=== PATIENT | female | born 1965 | race Caucasian/White ===

== ENCOUNTER → 2019-08-15 | Outpatient (CLI) | payer OTHER ==
[~2019-08-15] MED LIST: FENOFIBRATE150 MG PO; HYDROCH; LEVO-T75 MCG PO; MAGNESIUM400 M1 PO; MELOXICAM15 MG PO; METAXALONE800 MG PO; NEURONTIN300 MG PO; PROTONIX40 M4 PO; ROSUVASTATIN CA20 MG PO; TRAMADOL 50 MG50 MG PO; VENLAFAXINE HC150 M1 PO; VITAMIN D PO
--- NOTE | 2019-08-29 15:59 | PAINCON ---
[address] [address] PAIN MANAGEMENT CONSULTATION Name: ALYSE MILLER Room: [facility].#: [id number] Admission: 08/15/19 Attend Phys: Anselmo Keene MD Discharge: Date of : 61 Report #: [id number] THIS REPORT FOR: //name// cc: Mallika Guadarrama Stephanie RNP ~ THIS REPORT FOR: //name// CC: Anselmo Guadarrama DATE OF SERVICE: 08/15/2019 CHIEF COMPLAINT: Low back pain. HISTORY: The patient is a 53-year-old female who has been referred to the pain clinic for evaluation of back pain. The patient noted worsening of her pain about 15 weeks ago. She describes it as sharp, throbbing pain in the lumbar area and radiating down into both legs. She is not sure that anything makes it worse. She notes that the pain is somewhat better if she is lying flat in bed without moving. It radiates down into her legs and into her back while pulling a mower rope. She felt the sharp pain in her low back area. The pain has continued to radiate down into both legs. She describes some numbness in the right leg. She also perceives some weakness in both legs, which have frequently caused her to fall. She has been using muscle relaxants. They were not very effective. She had an x-ray of her back in June, which showed mild degenerative arthritis in the lumbar spine. Worst area and most effective was at L4-L5. She also has some facet arthritis/changes. She has been ambulating using crutches because of weakness in her legs. She has been undergoing physical therapy. She has considered chiropractic treatment. She has been using tramadol, gabapentin, and Flexeril. MEDICATIONS: Albuterol 2.5 nebulizing solution, Crestor 20 mg, fenofibrate 145 mg, fish oil 1000 mg, hydrochlorothiazide 12.5, hydrocodone 5/325 one p.o. q. 6 hours p.r.n., lorazepam 0.5 mg b.i.d., melatonin 3 mg, Mobic 15 mg, Prempro 0.3-1.5 daily, Protonix 40 mg, Skelaxin 800 mg t.i.d. PAST MEDICAL HISTORY: Thyroid disease, colon problems, tumor removed, joint disease, bilateral knee pain, hypertension. PAST SURGICAL HISTORY: Gastric bypass, cholecystectomy 20 years ago, in 2008, tonsils in 1969, tumor removed from the colon in 2009, gastric bypass in 2017, LASIK surgery in 2014. SOCIAL HISTORY: She is retired. Denies use of tobacco. Drinks about 3 alcoholic [place] [address] PAIN MANAGEMENT CONSULTATION Name: ALYSE MILLER Room: [facility]#: [id number] Admission: 08/15/19 Attend Phys: Anselmo Keene MD Discharge: Date of : 61 Report #: [id number] PAIN CLINIC ASSESSMENT AND PQRS: 1. The patient has osteoarthritic changes involving her knees, not being treated for rheumatoid arthritis. 2. Height 5 feet 3 inches, weight 220 pounds. The patient states she is gaining weight back since her gastric bypass. 3. Pain score . 4. Fall history: The patient states that she has fallen and has been using crutches because of weakness in her legs. 5. Hypertension. The patient is being treated for hypertension. 6. Blood thinner. The patient is not on a blood thinning medication. 7. Opioids. The patient receives medications from her primary. 8. Risk assessment tool, low for opioid use. 9. Functional assessment tool reviewed. 10. Recreational drug use. The patient denies. 11. Tobacco: The patient denies use of tobacco. 12. Alcohol: The patient drinks about 3 alcoholic beverages per week. PHYSICAL EXAMINATION: GENERAL: The patient is a well-developed, well-nourished white female. Appears her stated age. She is alert and oriented x 3. Her affect is appropriate. Speech is fluent. HEENT: Normocephalic, atraumatic. Extraocular eye muscles intact. Sclerae nonicteric. Mucous membranes are moist. The patient is wearing a mask. NECK: Without adenopathy or JVD. The patient does complain of some neck pain with a burning discomfort in the left trapezius area. EXTREMITIES: Upper extremity muscle strength judged to be 5/5 for the major muscle groups in the upper extremity. Deep tendon reflexes are +2 at the biceps bilaterally. The patient without significant scoliosis, kyphosis or lordosis. The patient complains of pain and discomfort in lower portion of her back. Deep tendon reflexes are +2 at the knees bilaterally, absent at the ankles. The patient complains of pain in the lower portion of her back, which radiates down in the L5-S1 dermatomal distribution bilaterally. LABORATORY DATA: Lumbar spine, AP lateral and oblique views 06/24/2019. Impression, mild degenerative arthritis changes of the lumbar spine, greatest at the L4-L5 level and in the posterior facets. MRI of the lumbar spine dated 06/28/2019. 1. L4-L5 mild disk space narrowing seen. There is a facet and ligamentum flavum hypertrophy. Diffuse bulging annulus is seen. Thecal sac measures 7 mm AP. No significant foraminal stenosis. 2. L5-S1 facet and ligamentum hypertrophy seen. There is a diffuse bulging annulus. There is a small focal central disk protrusion. This contacts both S1 nerve roots. The thecal sac measures 9-10 mm in AP diameter. Neural foramen are patent. IMPRESSION: [place] [address] PAIN MANAGEMENT CONSULTATION Name: ALYSE MILLER Room: [facility]#: [id number] Admission: 08/15/19 Attend Phys: Anselmo Keene MD Discharge: Date of : 61 Report #: [id number] 1. Lumbar radiculopathy with leg weakness and narrowing at L4-L5. 2. Thyroid disease. 3. Colon problems, tumor removed. 4. Joint disease. 5. Bilateral knee pain. 6. Hypertension. RECOMMENDATIONS: We discussed treatment options with the patient. Risks and benefits of an epidural steroid injection were discussed. At this point, the patient is having pain and discomfort radiating down into her legs. She has a perception of weakness in her lower extremity. She will return to the Pain Clinic, at which time we will consider an epidural steroid injection. We have discussed the risk and benefits of an epidural steroid injection. We reviewed them again prior to the injection. We would like to thank you for letting us participate in her care. We hope she continues to improve. <ELECTRONICALLY SIGNED> By: Anselmo Keene MD 08/29/19 1559 1418 2030N. Marvel Keene MD /[facility]
== END ==
LOC: EDUNIT# 07-01 13:43 → M.PC 10:00
PROVIDERS: ATTEND Anesthesiology Pain Medicine
DX: M54.16 Radiculopathy, lumbar region (principal); M48.061 Spinal stenosis, lumbar region without neurogenic claudication; E04.9 Nontoxic goiter, unspecified; M25.50 Pain in unspecified joint; M25.561 Pain in right knee; M25.562 Pain in left knee; I10 Essential (primary) hypertension; K59.9 Functional intestinal disorder, unspecified; Z79.899 Other long term (current) drug therapy

== ENCOUNTER → 2019-10-15 | Outpatient (CLI) | payer OTHER | LOC: M.RAD 14:30 | PROVIDERS: ATTEND Nurse Practitioner Family | DX: Z12.31 Encounter for screening mammogram for malignant neoplasm of breast (principal) ==

== ENCOUNTER → 2019-10-24 | Outpatient (CLI) | payer OTHER | END | disposition home or self-care (01) | LOC: M.PC 10:40 | PROVIDERS: ATTEND Anesthesiology Pain Medicine | DX: M54.16 Radiculopathy, lumbar region (principal); G89.29 Other chronic pain; I10 Essential (primary) hypertension; M19.90 Unspecified osteoarthritis, unspecified site; E07.9 Disorder of thyroid, unspecified; Z87.19 Personal history of other diseases of the digestive system; Z90.49 Acquired absence of other specified parts of digestive tract; Z98.84 Bariatric surgery status; Z98.890 Other specified postprocedural states; Z79.899 Other long term (current) drug therapy ==

== ENCOUNTER → 2019-12-17 | Outpatient (CLI) | payer OTHER ==
--- NOTE | 2019-12-18 15:45 | PAINCON ---
[address] [address] PAIN MANAGEMENT CONSULTATION Name: ALYSE MILLER Room: [facility]#: [id number] Admission: 12/17/19 Attend Phys: Anselmo Keene MD Discharge: Date of : 61 Report #: [id number] THIS REPORT FOR: //name// cc: Mallika Guadarrama Stephanie RNP ~ CC: Anselmo Guadarrama DATE OF SERVICE: 12/17/2019 CHIEF COMPLAINT: "Pain in the low back has improved, but I am still having some pain in the low back and going down my buttocks." HISTORY: The patient is a 54-year-old female who has been seen in the pain clinic because of lumbar radiculopathy. She underwent an epidural steroid injection because of lumbar radiculopathy. She was experiencing pain that radiated down into her lower extremities. She has noted that the pain has improved. She is having less radicular pain, but still has some back pain and discomfort. She has returned today with the hopes of undergoing an epidural steroid injection to help quell and decrease her pain. She rates her pain as a 6/10. She had no complication from the previous injection. ALLERGIES: No known drug allergies. CURRENT MEDICATIONS: Fenofibrate 150 mg, gabapentin 300 mg, levothyroxine 75 mcg, magnesium 400 mg, meloxicam 15 mg, metaxalone 800 mg, Protonix 40 mg, Rosuvastatin 20 mg, tramadol 50 mg, venlafaxine ER 150 mg, vitamin D. PAIN CLINIC ASSESSMENT AND PQRS: 1. The patient has some arthritic changes in her knees. She is not being treated for rheumatoid arthritis. 2. Height 5 feet 3 inches, weight 232 pounds, BMI is 41. 3. Vital Signs: Blood pressure is 142/102, second second blood pressure 134/91, heart rate 87, respiratory rate 16, room air saturation 96%, temperature 96.5, saturation 96%. 4. Pain intensity, 07/30. 5. Fall history. The patient has not fallen in the last 3 weeks. The patient had been walking with crutches. 6. Hypertension. The patient is being treated for hypertension. 7. Blood thinner. The patient is not on a blood thinning medication. 8. Opioids. The patient received medication from her primary. 9. Risk assessment tool, low for opioid use. 10. Functional assessment tool, reviewed. 11. Recreational drug use. The patient denies. 12. Tobacco. The patient denies. 13. Alcohol. The patient occasionally drinks alcoholic beverages 3 [place] [address] PAIN MANAGEMENT CONSULTATION Name: ALYSE MILLER [id number] Admission: 12/17/19 Attend Phys: Anselmo Keene MD Discharge: Date of : 61 Report #: [id number]. PHYSICAL EXAMINATION: GENERAL: The patient is a well-developed, well-nourished, white female. Appears her stated age. She is alert and oriented x 3. Her affect is appropriate. Speech is fluent. HEENT: Normocephalic, atraumatic. Extraocular eye muscles intact. The patient is wearing a facial covering. NECK: Without adenopathy or JVD. The patient does complain of some pain in the trapezius area of her neck. MUSCULOSKELETAL: Upper extremity muscle strength judged to be 5/5 for the major muscle groups in the upper extremity. The patient also has some discomfort in lower portion of her back. The patient without significant scoliosis, kyphosis or lordosis. The patient's muscle strength in the lower extremities judged to be 5-/5 for the major muscle groups in the lower extremity. The patient had pain in the past that radiated down the L4-L5 dermatomal distribution. IMPRESSION: 1. History of lumbar radicular pain in the L4-L5 dermatomal distribution. 2. Thyroid disease. 3. Colon problems, had tumor removed. 4. Joint disease. 5. Bilateral knee pain. 6. Hypertension. RECOMMENDATIONS: We discussed treatment options with the patient. Risks and benefits of an epidural steroid injection were again discussed. The patient has noted some improvement in pain and discomfort. She is having less radicular pain and discomfort in the L4-L5 area, but continues to have back pain and discomfort. At this juncture, we will proceed with an epidural steroid injection. Risks and benefits of the procedure were discussed. Possible complications of the procedure, which could include but are not limited to infection, worsening of pain, no improvement in pain, nerve damage, bleeding were discussed and the patient elects to proceed. PROCEDURE NOTE: The patient was taken to the procedure area. She was then assisted in getting on the examination table. Her back was sterilely prepped with a Betadine solution. At the L4-L5 interspace, 0.25% bupivacaine was infiltrated. A total of 120 mg triamcinolone and 2 mL of 0.25% bupivacaine was injected. The patient tolerated the procedure. She remained in the pain clinic for an appropriate amount of time. Pain decreased to 3 at the time of discharge. A total of 11 seconds fluor[place] [address] PAIN MANAGEMENT CONSULTATION Name: ALYSE MILLER Room: [facility]#: [id number] Admission: 12/17/19 Attend Phys: Anselmo Keene MD Discharge: Date of : 61 Report #: [id number] We would like to thank you for letting us participate in her care. We hope she continues to improve. <ELECTRONICALLY SIGNED> By: Anselmo Keene MD 12/18/19 1545 1341 0019N. Marvel Keene MD /PMT
== END | disposition home or self-care (01) ==
LOC: M.PC 11:20
PROVIDERS: ATTEND Anesthesiology Pain Medicine
DX: M54.5 Low back pain (principal); M54.16 Radiculopathy, lumbar region; I10 Essential (primary) hypertension; M25.561 Pain in right knee; M25.562 Pain in left knee; K63.89 Other specified diseases of intestine; Z79.899 Other long term (current) drug therapy

== ENCOUNTER → 2020-04-14 | Outpatient (CLI) | payer OTHER ==
--- NOTE | 2020-04-14 14:01 | 2DMMODE ---
[place] [address] 2 D/M-MODE ECHOCARDIOGRAM Name: ALYSE MILLER Room: [facility]#: [id number] Admission: 04/14/20 Attend Phys: Mallika Guadarrama, Discharge: Date of : 61 Date of Service: 04/14/20 1401 Report #: [id number] THIS REPORT FOR: cc: Mallika Guadarrama,Spike Ferreira MD [facility] ~ APPROVED REPORT Study performed: 04/14/2020 10:53:24 EXAM: Comprehensive 2D, Doppler, and color-flow Echocardiogram Patient Location: Out-Patient BSA: 2.13 HR: 90 bpm BP: 170/80 mmHg Other Information Study Quality: Fair Indications Dyspnea 2D Dimensions IVSd: 8.56 (7-11mm) LVOT Diam: 20.94 (18-24mm) LVDd: 49.40 mm PWd: 7.99 (7-11mm) Ascending Ao: 29.94 (22-36mm) LVDs: 24.42 (25-40mm) Aortic Root: 33.66 mm Volumes Left Atrial Volume (Systole) LA ESV Index: 14.70 mL/m2 Aortic Valve AoV Peak Bryn.: 1.23 m/s AO Peak Gr.: 6.04 mmHg LVOT Max P.92 mmHg AO Mean Gr.: 3.39 mmHg LVOT Mean P.06 mmHg LVOT Max V: 0.99 m/s AO V2 VTI: 21.33 cm LVOT Mean V: 0.67 m/s EDEN (VTI): 2.81 cm2 LVOT V1 VTI: 17.40 cm Mitral Valve E/A Ratio: 0.77 [place] [address] 2 D/M-MODE ECHOCARDIOGRAM Name: ALYSE MILLER Room: [facility]#: [id number] Admission: 04/14/20 Attend Phys: Mallika Duarte, Discharge: Date of : 61 Date of Service: 04/14/20 1401 Report #: [id number] MV Decel. Time: 183.71 ms MV E Max Bryn.: 0.45 m/s MV PHT: 53.28 ms MVA (PHT): 4.13 cm2 TDI E/Lateral E': 4.50 E/Medial E': 5.63 Medial E' Bryn.: 0.08 m/s Lateral E' Bryn.: 0.10 m/s Pulmonary Valve PV Peak Bryn.: 0.99 m/s PV Peak Gr.: 3.89 mmHg Left Ventricle The left ventricle is normal size. There is normal LV segmental wall motion. There is normal left ventricular wall thickness. Left ventricular systolic function is normal. LVEF is 55-60%. Grade I - abnormal relaxation pattern. Right Ventricle The right ventricle is normal size. The right ventricular systolic function is normal. Atria The left atrium size is normal. The right atrium size is normal. Aortic Valve The aortic valve is normal in structure. No aortic regurgitation is present. There is no aortic valvular stenosis. Mitral Valve The mitral valve is normal in structure. There is no mitral valve regurgitation noted. No evidence of mitral valve stenosis. Tricuspid Valve The tricuspid valve is normal in structure. There is no tricuspid valve regurgitation noted. Pulmonic Valve The pulmonary valve is normal in structure. There is no pulmonic valvular regurgitation. Great Vessels The aortic root is normal in size. IVC [place] [address] 2 D/M-MODE ECHOCARDIOGRAM Name: ALYSE MILLER Room: [facility]#: [id number] Admission: 04/14/20 Attend Phys: Mallika Guadarrama, Discharge: Date of : 61 Date of Service: 04/14/20 1401 Report #: [id number] Pericardium There is no pericardial effusion. <Conclusion> The left ventricle is normal size. There is normal left ventricular wall thickness. Left ventricular systolic function is normal. LVEF is 55-60%. Grade I - abnormal relaxation pattern. <ELECTRONICALLY SIGNED> By: Spike Razo MD, FACC 04/14/20 140 00 00 Spike Razo MD, FACC /INF
== END ==
LOC: M.CRD 10:00
PROVIDERS: ATTEND Nurse Practitioner Family
DX: R06.00 Dyspnea, unspecified (principal)

== ENCOUNTER → 2020-05-07 | Outpatient (CLI) | payer OTHER ==
[2020-05-07 10:31] LABS: CREATININE 0.8 mg/dL (0.6-1.3)
== END ==
LOC: M.LAB 09:55 → M.CT 11:00
PROVIDERS: ATTEND Nurse Practitioner Family
DX: Z01.812 Encounter for preprocedural laboratory examination (principal); R04.2 Hemoptysis; M47.814 Spondylosis without myelopathy or radiculopathy, thoracic region

== ENCOUNTER 2020-05-29 08:50 | Emergency (ER) | payer OTHER ==
[~2020-05-29] VITALS: Ht 160 cm; Wt 113.4 kg
[2020-05-29] MEDS ORDERED: FLONASE 0.05%50 MCG NARES (09:20)
[2020-05-29] MEDS ORDERED: FISH OIL 1,0001 EAC1 PO (09:20)
[2020-05-29 10:05] LABS: ABSOLUTE BASOPHILS 0.1 thou/uL (0.0-0.2); ABSOLUTE EOSINOPHILS 0.2 thou/uL (0.0-0.7); ABSOLUTE LYMPHOCYTES 1.7 thou/uL (0.8-5.3); ABSOLUTE MONOCYTES 0.8 thou/uL (0.0-1.2); ABSOLUTE NEUTROPHILS 4.7 thou/uL (1.6-8.1); BASOPHILS 1.1 %; EOSINOPHILS 2.6 %; HEMATOCRIT 37.1 % (37.0-47.0); HEMOGLOBIN 12.2 gm/dL (12.0-15.0); MCH 29.5 pg (26.0-34.0); MCV 89.6 fL (80.0-100.0); MPV 7.7 fl. (7.2-11.1); NUCLEATED RBCS 0 /100WBC; PLATELET COUNT* 279 thou/uL (150-400); POLYS 62.3 %; RBC 4.14 mil/uL (4.20-5.00); RDW-CV 13.3 % (10.5-14.5); WBC 7.6 thou/uL (4.0-11.0)
[2020-05-29 10:19] LABS: CALCIUM 9.7 mg/dL (8.5-10.1); CREATININE 0.9 mg/dL (0.6-1.3); POTASSIUM 3.6 mmol/L (3.5-5.1)
[2020-05-29 10:30] LABS: ALBUMIN 3.4 g/dL (3.4-5.0); TOTAL BILIRUBIN 0.3 mg/dL (<0.1-1.0)
[2020-05-29 11:06] VITALS: BP 140/82
--- NOTE | 2020-05-29 15:43 | EKG ---
[place] [address] ELECTROCARDIOGRAM REPORT Name: ELISE MILLERNA CIARA Room: [facility]#: [id number] Admission: 05/29/20 Attend Phys: Discharge: 05/29/20 Date of : 61 Date of Service: 05/29/20 0949 Report #: [id number] THIS REPORT FOR: //name// [facility] ED Test Date: 2020-05-29 Test Time: 09:49:59 Pat Name: ALYSE MILLER Department: Room: Gender: Supervisor Pleating: : 1965 Requested By: Kirill Suresh Order Number: [id number] MD: Oscar Allen Measurements Intervals [place] Rate: 75 P: 32 CT: 142 QRS: 4 QRSD: 98 T: 42 QT: 494 QTc: 552 Interpretive Statements Sinus rhythm Low voltage, precordial leads Borderline T abnormalities, anterior leads Prolonged QT interval No previous ECG available for comparison Electronically Signed On 05-29-2020 15:43:29 CDT by Oscar Allen [email or web address] <ELECTRONICALLY SIGNED> By: Oscar Allen MD, [facility] 05/29/20 1543 0949 0949 Oscar Allen MD, [facility] /EPI
== END 2020-05-29 11:07 | disposition home or self-care (01) ==
LOC: M.ERS 08:50
PROVIDERS: Family Medicine
DX: R05 Cough (principal); I10 Essential (primary) hypertension; E78.00 Pure hypercholesterolemia, unspecified; M19.90 Unspecified osteoarthritis, unspecified site

== ENCOUNTER → 2020-08-20 | Outpatient (CLI) | payer OTHER ==
[~2020-08-20] MED LIST changes: +FISH OIL 1,0001 EAC1 PO; +FLONASE 0.05%50 MCG NARES
== END | disposition home or self-care (01) ==
LOC: M.PC 08:37
PROVIDERS: ATTEND Anesthesiology Pain Medicine
DX: M54.16 Radiculopathy, lumbar region (principal); G89.29 Other chronic pain; I10 Essential (primary) hypertension; E78.00 Pure hypercholesterolemia, unspecified; M19.90 Unspecified osteoarthritis, unspecified site; F32.9 Major depressive disorder, single episode, unspecified; E07.9 Disorder of thyroid, unspecified; Z98.890 Other specified postprocedural states; Z79.899 Other long term (current) drug therapy

== ENCOUNTER 2020-09-21 01:57 | Emergency (ER) | payer OTHER ==
[~2020-09-21] VITALS: Ht 162.6 cm; Wt 113.4 kg
[2020-09-21] MEDS ORDERED: DRIZALMA SPRINK30 MG PO (02:10)
[2020-09-21] MEDS ORDERED: BENZONATATE200 MG PO (02:11)
[2020-09-21] MEDS ORDERED: FUROSEMIDE 20 M20 MG PO (02:11)
[2020-09-21] MEDS ORDERED: TRAMADOL 50 MG50 MG PO (02:11)
[2020-09-21] MEDS ORDERED: MONTELUKAST SODI4 M1 PO (02:11)
[2020-09-21] MEDS ORDERED: TOPAMAX100 MG PO (02:12)
[2020-09-21 03:12] LABS: ABSOLUTE EOSINOPHILS 0.2 thou/uL (0.0-0.7); ABSOLUTE LYMPHOCYTES 1.7 thou/uL (0.8-5.3); ABSOLUTE MONOCYTES 0.6 thou/uL (0.0-1.2); ABSOLUTE NEUTROPHILS 3.6 thou/uL (1.6-8.1); BASOPHILS 0.7 %; EOSINOPHILS 2.9 %; HEMATOCRIT 38.1 % (37.0-47.0); HEMOGLOBIN 12.9 gm/dL (12.0-15.0); LYMPHOCYTES 28.2 %; MCH 30.4 pg (26.0-34.0); MCHC 33.8 g/dL (28.0-37.0); MCV 90.1 fL (80.0-100.0); MONOCYTES 9.7 %; MPV 7.6 fl. (7.2-11.1); NUCLEATED RBCS 0 /100WBC; PLATELET COUNT* 302 thou/uL (150-400); POLYS 58.5 %; RBC 4.23 mil/uL (4.20-5.00); RDW-CV 15.1 % (10.5-14.5); WBC 6.1 thou/uL (4.0-11.0)
[2020-09-21 03:14] LABS: CALCIUM 8.8 mg/dL (8.5-10.1); CREATININE 1.1 mg/dL (0.6-1.3); POTASSIUM 4.4 mmol/L (3.5-5.1)
[2020-09-21 03:19] LABS: ALBUMIN 3.9 g/dL (3.4-5.0); MAGNESIUM 2.1 mg/dL (1.8-2.4); TOTAL BILIRUBIN 0.2 mg/dL (<0.1-1.0); TOTAL PROTEIN 7.2 g/dL (6.4-8.2)
[2020-09-21 05:36] LABS: URINE BILIRUBIN NEGATIVE (Negative); URINE BLOOD NEGATIVE (Negative); URINE CLARITY CLEAR; URINE COLOR YELLOW; URINE GLUCOSE-RANDOM NEGATIVE (Negative); URINE KETONES NEGATIVE (Negative); URINE LEUKOCYTES NEGATIVE (Negative); URINE NITRITE NEGATIVE (Negative); URINE PROTEIN NEGATIVE (Negative); URINE UROBILINOGEN 0.2 E.U./dl (0.2-1.0)
[2020-09-21] MEDS ORDERED: ATIVAN0.5 M1 PO (06:00)
[2020-09-21 06:17] VITALS: BP 139/79
--- NOTE | 2020-09-21 10:05 | EKG ---
[place] [address] ELECTROCARDIOGRAM REPORT Name: MILLERALYSE Room: [facility]#: [id number] Admission: 09/21/20 Attend Phys: Discharge: 09/21/20 Date of : 61 Date of Service: 09/21/20 0339 Report #: [id number] THIS REPORT FOR: //name// [facility] ED Test Date: 2020-09-21 Test Time: 03:39:30 Pat Name: ALYSE MILLER Department: Room: Gender: Physician Vice President: : 1965 Requested By: Tiffany Sorensen Order Number: [id number] MD: Oscar Allen Measurements Intervals [place] Rate: 91 P: 40 MS: 131 QRS: 26 QRSD: 100 T: 48 QT: 381 QTc: 469 Interpretive Statements Sinus rhythm Low voltage, precordial leads Borderline T abnormalities, anterior leads Compared to ECG 05/29/2020 09:49:59 Prolonged QT interval no longer present T-wave abnormality still present Electronically Signed On 09-21-2020 10:04:51 CDT by Oscar Allen [email or web address] <ELECTRONICALLY SIGNED> By: Oscar Allen MD, [facility] 09/21/20 1004 0339 0339 Oscar Allen MD, [facility] /EPI
== END 2020-09-21 06:17 | disposition home or self-care (01) ==
LOC: M.ERS 01:57
PROVIDERS: Personal Emergency Response Attendant
DX: T43.225A Adverse effect of selective serotonin reuptake inhibitors, initial encounter (principal); Z20.822 Contact with and (suspected) exposure to COVID-19; I10 Essential (primary) hypertension; E78.00 Pure hypercholesterolemia, unspecified; M19.90 Unspecified osteoarthritis, unspecified site; Y92.89 Other specified places as the place of occurrence of the external cause